=== PATIENT | female | born 1970 | race Caucasian/White ===

== ENCOUNTER → 2023-03-18 08:05 | Outpatient (REF) | payer OTHER, SELFPAY ==
--- NOTE | 2023-03-18 08:11 | CA_ITS ---
Transthoracic Echocardiogram Patient (Last, First, Middle): Noemi Banegas E Gender: Female Date of : 1970 Age: 52 Procedure Date: 03/18/2023 Procedure Type: Transthoracic Echocardiogram Location: OP Height: 167.64 cm Weight: 77.11 kg BSA: 1.87 m2 Heart Rate: bpm BP: 108 / 72 mmHg Respiratory Therapy Instructor: JEREMIAH Referring MD: Gwendolyn Ho PA-C Symptoms: R06.02 SOB R07.9 CHEST PAIN Study Quality: Adequate ECG Rhythm: Sinus Conclusions: - The left ventricular systolic function is normal. The calculated ejection fraction is 59% by biplane method. - No obvious valvular pathology seen on this study. Findings Left Ventricle Normal left ventricular cavity size. The left ventricular systolic function is normal. The calculated ejection fraction is 59% by biplane method. There is no evidence of regional wall motion abnormalities. Diastolic function is normal for age. LV peak GLS 20.9%. Right Ventricle Normal right ventricular cavity size and systolic function. Atria Both atria are normal in size. Aortic Valve There is a normal trileaflet aortic valve. There is no aortic valve stenosis. There is no aortic valve regurgitation. Mitral Valve The mitral valve appears normal. There is no mitral valve regurgitation. There is no mitral valve stenosis. Pulmonic Valve The pulmonic valve is likely normal. Tricuspid Valve Normal tricuspid valve structure. There is trace tricuspid valve regurgitation. There is no evidence of pulmonary hypertension. Great Vessels The asc aorta is normal in size. Venous The inferior vena cava is normal in size and collapses greater than 50% with inspiration. Pericardium/Pleural There is no evidence of pericardial effusion. Prior Study Comparison No prior study available for comparison. Recommendations, Care & Conclusions No obvious valvular pathology seen on this study. Measurements 2D Linear Measurements IVSd: 0.80 0.6-0.9/0.6-1.0 cm LVIDd: 5.20 3.9-5.3/4.2-5.9 cm LVIDd Index: 2.78 2.4-3.2/2.2-3.1 cm/m2 LVIDs: 3.20 2.0-3.6 cm LVPWd: 0.70 0.7-1.1 cm LA Diam: 3.40 2.7-3.8/3.0-4.0 cm LAIDs Index: 1.82 1.5-2.3 cm/m2 LV Mass: 166.56 67-162/88-224 g LV Mass Index: 89.07 43-95/49-115 g/m2 LVOT Diam: 2.10 3.0+(-)1.3 cm 2D Systolic Function EF 4C: 60.00 >55% EF 2C: 58.90 >55% EF BiP: 59.40 >55% Mitral Valve MV Pk E: 0.96 MV PK A: 0.45 MV Decel Time: 165.00 E/A: 2.10 E'Lateral: 12.90 E'Medial: 8.05 E/E' Med: 11.90 E/E' Lat: 7.40 PHT: 48.00 MVA PHT: 4.58 Decel Hall: 5.80 Aortic Valve AoV Pk Sanjay: 1.35 AoV Mn Sanjay: 0.96 AoV VTI: 0.31 AoV Pk Grad: 7.00 Aov Mn Grad: 4.00 JOSE GUADALUPE Cont.VTI: 2.45 LVOT LVOT Pk Sanjay: 1.09 LVOT Mn Sanjay: 0.67 LVOT VTI: 0.22 LVOT Pk Grad: 5.00 LVOT Mn Grad: 2.00 LVOT Diam: 2.10 LVOT Area: 3.46 Diastolic Function MV Pk E: 0.96 MV Pk A: 0.45 E/A: 2.10 E'Medial: 8.05 E/E' Med: 11.90 E' Laterial: 12.90 E/E' Lat: 7.40 Right Ventricle TAPSE (mm): 22.60 TVS' Sanjay: 12.00 Tricuspid Valve TR Pk Sanjay: 1.88 TR Pk Grad: 14.00 RA Press: 3.00 RVSP: 17.00 Great Vessels Aorta Sinus of Valsalva: 3.20 2.0-3.[address] Ridge: 2.60 1.7-3.4 cm Ao Asc: 3.10 2.1-3.4 cm Updated in Other Vendor System with Status of Final Mario Leroy MD electronically signed on 03/18/2023 11:42:21 AM with status of Final
== END ==
LOC: HO.CARD 08:05
PROVIDERS: PCP Family Medicine; Visit Provider Physician Assistant
DX: R07.9 Chest pain, unspecified (principal); R06.02 Shortness of breath
CPT/HCPCS: 93306; 93356

== ENCOUNTER → 2023-03-18 08:11 | Outpatient (BNV) | payer OTHER, SELFPAY | PROVIDERS: PCP Family Medicine; Visit Provider Internal Medicine | DX: R07.9 Chest pain, unspecified (principal); R06.02 Shortness of breath | CPT/HCPCS: 93306 ==